=== PATIENT | male | born 1935 | race American Indian/Alaskan Native ===

== ENCOUNTER 2018-01-06 06:02 | Day surgery (SDC) | payer MEDICARE ==
[~2018-01-06 06:02] MED LIST: ANCEF/STERILE WATER 2 GM/20 ML 2 GM/20 ML SYRINGE IV NR; LACTATED RINGERS 1,000 ML IV SCH
[2018-01-06] MEDS ORDERED: NACL BACTERIOSTATIC INFILTRATI ONE (06:30)
--- NOTE | 2018-01-06 07:11 | Anesthesia Day of Surgery ---
Anesthesia Day of Surgery - Day of Surgery Patient Examined: Yes Patient H&P Reviewed: Yes Patient is NPO: Yes
--- NOTE | 2018-01-06 07:11 | Anesthesia Consultation ---
Anesthesia Consult and Med Hx Date of service: 01/06/18 - Airway Anesthetic Teeth Evaluation: Good ROM Head & Neck: Adequate Mental/Hyoid Distance: Adequate Mallampati Class: Class I Intubation Access Assessment: Good - Pulmonary Exam CTA: Yes - Cardiac Exam Cardiac Exam: RRR - Pre-Operative Health Status ASA Pre-Surgery Classification: ASA2 Proposed Anesthetic Plan: General - Pulmonary Hx Smoking: (STOPPED X 30 YRS) Hx Sleep Apnea: No (DAISHA PRE SCREEN HIGH RISK) - Cardiovascular System Hx Hypertension: Yes (X 15 YRS) - Endocrine Hx Renal Disease: Yes (Renal insufficiency) Hx Non-Insulin Dependent Diabetes: Yes - Other Systems Hx Cancer: No - Additional Comments Anesthesia Medical History Comments: BPH
[2018-01-06] MEDS ORDERED: XYLOCAINE MPF 2% ONE (07:22)
[2018-01-06] MEDS ORDERED: DIPRIVAN 10 MG/ML IV ONE (07:23)
[2018-01-06] MEDS ORDERED: SUBLIMAZE ONE (07:23)
[2018-01-06] MEDS ORDERED: MARCAINE 0.5% 0 ML INFILTRATI ONE (07:33)
[2018-01-06] MEDS ORDERED: XYLOCAINE 1% 20 mL ONE (07:33)
[2018-01-06] MEDS ORDERED: MARCAINE 0.25% INFILTRATI ONE (07:35)
[2018-01-06] MEDS ORDERED: DILAUDID IV PRN (08:00)
[2018-01-06] MEDS ORDERED: ePHEDrine SULFATE ONE (08:11)
[2018-01-06] MEDS ORDERED: ANCEF/STERILE WATER 2 GM/20 ML IV NR (09:00)
[2018-01-06] MEDS ORDERED: NACL 0.9% IR ONE (09:00)
[2018-01-06] MEDS ORDERED: ROBINUL ONE (09:01)
[2018-01-06] MEDS ORDERED: ZOFRAN ONE (09:01)
--- NOTE | 2018-01-06 09:25 | Post Operative Note ---
Date of procedure: 01/06/18 Pre-op diagnosis: chronic L epididymitis Post-op diagnosis: same Findings: same Procedure: L orch Anesthesia: GETA Surgeon: ANNY JOHNSON Estimated blood loss: minimal Pathology: list (l testes) Specimen disposition: to lab Condition: stable Disposition: PACU
--- NOTE | 2018-01-06 09:27 | Discharge Summary ---
Short Stay Discharge Plan Activity: other Weight Bearing Status: Full Weight Bearing Diet: regular, diabetic Special Instructions: other (ice in RR) Durable Medical Equipment Needed Upon Discharge: other (pemrose ) Follow up with: WILLIE BARRY MD [Primary Care Provider] - 7 Days ANNY JOHNSON MD [Staff Physician] - 3 Days
[2018-01-06 10:28] VITALS: BP 156/81
--- NOTE | 2018-01-06 13:00 | Operative Report ---
PREOPERATIVE DIAGNOSES: Chronic left epididymitis, severe intermittent left scrotal pain. POSTOPERATIVE DIAGNOSES: Chronic left epididymitis, severe intermittent left scrotal pain. PROCEDURE: Left scrotal exploration and left orchiectomy. SURGEON: Ernesto Burden MD ANESTHESIA: General. FINDINGS: This is a gentleman with diabetes. He has recurrent scrotal pain and discomfort. He has been on antibiotics with no relief. DESCRIPTION OF PROCEDURE: The patient was brought to the operating room and placed on the operating table. Following induction of anesthesia, placed in the supine position, prepped and draped in usual sterile fashion. An oblique incision was made over the left hemiscrotum, carried down to skin and superficial fascial layers. The fluid within the scrotal compartment and the entire scrotal compartment was delivered. We evacuated about 70 mL of clear fluid. At this point, the testis looked relatively normal, but the epididymis was quite swollen and vascular. Once we freed up the testis, the cord was isolated and divided into 3 segments and doubly clamped and suture ligated in multiple sites. It was triply tied on each bundle. The patient tolerated the procedure well. Specimen was brought to pathology. Wound was irrigated. There were no significant complications. A 1/2 inch Ana was brought out through a separate stab wound. Superficial fascia was closed with 3-0 chromic, skin with a 3-0 and 2-0 chromics, brought to recovery in stable condition. Family notified. JOB# [id number] GILA/KAYDEN
--- NOTE | 2018-01-06 14:13 | Post Anesthesia Evaluation ---
- Post Anesthesia Evaluation Patient Participated: Yes Airway Patent: Yes Stable Respiratory Function: Yes Nausea/Vomiting: No Temp > 96.8F: Yes Pain Manageable: Yes Adequeate Hydration: Yes Anesthesia Complications: No
== END 2018-01-06 10:51 | disposition home or self-care (01) ==
LOC: OR 06:02
PROVIDERS: ATTEND Urology
DX: N45.1 Epididymitis (principal); N40.0 Benign prostatic hyperplasia without lower urinary tract symptoms; E11.9 Type 2 diabetes mellitus without complications; A75.2 Typhus fever due to Rickettsia typhi; I10 Essential (primary) hypertension; Z87.891 Personal history of nicotine dependence; Z79.899 Other long term (current) drug therapy; Z98.890 Other specified postprocedural states
CPT/HCPCS: 54520; 82962; 87075; 87116; 88305; 88312; 88342; J0690; J1170; J2405; J2704; J3010; J7120